=== PATIENT | male | born 1940 | race Caucasian/White ===

== ENCOUNTER 2016-06-08 03:48 | Inpatient (IN) ==
[2016-06-08 04:25] LABS: HEMATOCRIT 23.5 % (42.0-52.0); HEMOGLOBIN 7.7 g/dL (14.0-18.0); LYMPH# 0.22 X1000 (1.2-3.4); LYMPH% 18.5 % (20.5-51.1); MANUAL DIFF NEEDED? NO; MCH 35.3 PG (27-31); MCHC 32.8 g/dL (33-37); MCV 107.8 FL (81-99); MONO% 8.4 % (1.7-9.3); MPV 12.5 FL (7.4-10.4); NEUT% 73.1 % (42.2-75.2); PLT 62 X1000 (130-400); RBC 2.18 XMIL (4.7-6.1)
[2016-06-08 04:31] LABS: INR 1.43; PROTIME 15.4 Seconds (9.2-11.7)
[2016-06-08 04:37] LABS: AGAP 12; ALBUMIN 1.8 g/dL (3.5-5.0); ALKALINE PHOSPHATASE 118 U/L (32-122); BUN 39 mg/dL (8-22); CALCIUM 7.2 mg/dL (8.8-10.2); CHLORIDE 105 mmol/L (98-107); CK PROFILE 49 U/L (24-204); COSMO 285; GOT 19 U/L (10-34); GPT 21 U/L (10-44); MAGNESIUM 1.9 mg/dL (1.5-2.7); POTASSIUM 4.3 mmol/L (3.5-5.1); SODIUM 138 mmol/L (136-145); TCO2 21 mmol/L (25-35); TOTAL BILIRUBIN 0.53 mg/dL (0.20-1.00); TOTAL PROTEIN 4.6 g/dL (6.3-8.3)
--- NOTE | 2016-06-08 04:40 | PROVIDER DOCUMENTATION ---
HPI-Head Injury - General Chief Complaint: Fall Stated Complaint: fall Time Seen by Provider: 06/08/16 04:11 Source: EMS Unable to obtain history due to:: urgency Allergies/Adverse Reactions: Patient Allergies Allergy/AdvReac Type Severity Reaction Status Date / Time adhesive tape Allergy Severe HIVES Verified 06/08/16 04:17 Penicillins Allergy RASH Verified 06/08/16 04:17 Home Medications: Home Medication List Medication Instructions Recorded Confirmed Last Taken Type Diphenoxylate/Atropine [Lomotil] 2.5 mg PO TID PRN 06/08/16 06/08/16 06/07/16 History Doxycycline Hyclate 1 cap PO DAILY 06/08/16 06/08/16 06/07/16 History Hydrocodone/Acetaminophen 1 tab PO Q6H 06/08/16 06/08/16 06/07/16 History [Hydrocodon-Acetaminophn 10-325] Methylphenidate HCl [Ritalin] 1 tab PO BID 06/08/16 06/08/16 06/07/16 History Ondansetron [Ondansetron Odt] 1 tab PO Q6H PRN 06/08/16 06/08/16 06/07/16 History - History of Present Illness-Head Injury Nature of Presenting Problem: PATIENT IS A 75 Y/O MALE WITH SEVERE DEMENTIA, WHO PRESENTS TO THE ED AFTER FALLING FACE FORWARD AFTER SLIPPING ON THE FLOOR AT THE ASSISTED. HE IS BLEEDING FROM THE LOWER LIP AND BOTH NOSTRILS. HE HAS MULTIPLE SKIN TEARS ON HIS ARMS. HE DENIES ANY OTHER COMPLAINTS. HE DENIES ANY CHEST PAIN OR DYSPNEA. Head Injury Location: reports: frontal Other injuries associated with incident:: reports: [place] Quality of Pain: reports: none Severity: reports: mild Onset/Duration: reports: unsure Timing: reports: still present Method of Injury: reports: fell Any recent trauma/injury?: reports: none Injury Associated Symptoms: reports: joint pain Locality of Occurance: Other (ASSISTED) Similar Symptoms Previously?: No Recently seen or treated by another doctor?: No Review of Systems - Adult - REVIEW OF SYSTEMS - ADULT Constitutional: reports: no symptoms reported Eyes: reports: no symptoms reported Ears, Nose, Mouth & Throat: reports: see HPI Cardiovascular: reports: see HPI Respiratory: reports: no symptoms reported Gastrointestinal: reports: no symptoms reported, see HPI, abdominal pain Genitourinary: reports: no symptoms reported, see HPI Musculoskeletal: reports: no symptoms reported, see HPI Integumentary: reports: no symptoms reported, see HPI Neurological: reports: no symptoms reported, see HPI Psychiatric: reports: no symptoms reported, see HPI Endocrine: reports: no symptoms reported, see HPI Hematologic/Lymphatic: reports: no symptoms reported Allergic/Immunologic: reports: no symptoms reported All Other Systems: Reviewed and Negative Past History - Adult - PAST MEDICAL HISTORY-ADULT Review of Records: reports: Old Records Reviewed, Nursing Assessment Review, Medications Reviewed, Social history reviewed & non-contributory. Major Childhood Illnesses: reports: denies history Cardiovascular: reports: CAD, hyperlipidemia, VT (x 3 silent) Respiratory: reports: denies history Gastrointestinal: reports: cancer (colon (currently being treated)), GERD Obstetrical/Gynecological: reports: denies history Genitourinary: reports: denies history Musculoskeletal: reports: denies history Neurological: reports: denies history Endocrine/Immune: reports: denies history Other Conditions: reports: denies history - PRIOR SURGERIES/PROCEDURES Surgical/Procedure History: reports: cardiac stent (angioplasty no stent), orthopedic (extremity) (bilat knee), other (lung biopsy) - IMMUNIZATION STATUS Childhood Immunizations: See Nurse Assessment Flu Vaccine: See Nurse Assessment - FAMILY HISTORY Family History: reviewed, not pertinent Physical Exam- Neurological - Physical Exam-Neuro Initial Vital Signs Reviewed: Yes General Appearance: appears well, alert HENMT: maxillary tenderness, other (LEFT MAXILLARY TENDERNESS. DRIED BLOOD PER NARES. 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 HARVEY (ENT), WHO HAS RECOMMENDED F/U WITH MAXILLOFACIAL SURGERY Attestation - Physician/ SAMUEL Attestation Patient care was provided by Advanced Practice Provider:: Yes Advanced Practice Provider documentation review:: The Mid-level provider documentation, treatment plan and medical decision making was reviewed by the physician who agrees with all treatment and medical decision making by the MLP. The physician spent face to face time with patient:: Yes Advanced Practice Provider documentation review:: The physician spent face to face time with this patient and agrees with all MLP documentation, treatment, and medical decision making by the MLP. See provider notes for further information. Physician Attestation - Physician Attestation I, the provider, attest to the following statement:: Narinder Chavez Physician documentation Attestation:: This documentation recorded by the scribe accurately reflects the service I personally performed and the decisions made by me.
[2016-06-08 04:42] LABS: PTT 44.7 Seconds (22.0-36.0)
[2016-06-08] MEDS ORDERED: LEVAQUIN 750 MG/D5W 150 ML IV ONE (04:48)
[2016-06-08] MEDS ORDERED: NS 1,000 ML IV ONE ×3 (04:48→16:31)
[2016-06-08] MEDS ORDERED: VANCOMYCIN 1 GM/NS 250 ML IV ONE ×2 (04:50→12:30)
--- NOTE | 2016-06-08 04:56 | PROVIDER DOCUMENTATION ---
HPI-Fever - General Chief Complaint: Fall Stated Complaint: fall Time Seen by Provider: 06/08/16 04:11 Source: EMS Unable to obtain history due to:: urgency Allergies/Adverse Reactions: Patient Allergies Allergy/AdvReac Type Severity Reaction Status Date / Time adhesive tape Allergy Severe HIVES Verified 06/08/16 04:17 Penicillins Allergy RASH Verified 06/08/16 04:17 Home Medications: Home Medication List Medication Instructions Recorded Confirmed Last Taken Type Diphenoxylate/Atropine [Lomotil] 2.5 mg PO TID PRN 06/08/16 06/08/16 06/07/16 History Doxycycline Hyclate 1 cap PO DAILY 06/08/16 06/08/16 06/07/16 History Hydrocodone/Acetaminophen 1 tab PO Q6H 06/08/16 06/08/16 06/07/16 History [Hydrocodon-Acetaminophn 10-325] Methylphenidate HCl [Ritalin] 1 tab PO BID 06/08/16 06/08/16 06/07/16 History Ondansetron [Ondansetron Odt] 1 tab PO Q6H PRN 06/08/16 06/08/16 06/07/16 History - History of Present Illness-Fever Nature of Presenting Problem: 75 YEAR OLD MALE WHO SLIPPED OUT OF WHEELCHAIR. FAMILY STATES THAT HE HAS BEEN VERY WEAK. HISTORY OF COLON CANCER, S/P CHEMOTHERAPY Fever Severity/Quality: reports: subjective Onset/Duration: reports: 3 days ago Timing: reports: still present Severity: reports: moderate Context: reports: cancer-chemotherapy Fever Therapy OUTSIDE SALES ENGINEER: Initiated prescription medications Cognitive Baseline: alert, oriented x3 Modifying Factors: improves with: nothing Associated Symptoms: reports: fatigue Similar Symptoms Previously?: No Recently seen or treated by another doctor?: No Review of Systems - Adult - REVIEW OF SYSTEMS - ADULT Constitutional: reports: see HPI Eyes: reports: no symptoms reported Ears, Nose, Mouth & Throat: reports: no symptoms reported Cardiovascular: reports: no symptoms reported Respiratory: reports: no symptoms reported Gastrointestinal: reports: see HPI Genitourinary: reports: no symptoms reported Musculoskeletal: reports: joint pain, joint swelling, muscle aches Integumentary: reports: nail changes, skin thickening Neurological: reports: no symptoms reported Psychiatric: reports: no symptoms reported Endocrine: reports: no symptoms reported, see HPI, change in skin pigment Hematologic/Lymphatic: reports: no symptoms reported, see HPI, blood clots Allergic/Immunologic: reports: no symptoms reported, see HPI, allergic reactions Past History - Adult - PAST MEDICAL HISTORY-ADULT Review of Records: reports: Old Records Reviewed, Nursing Assessment Review, Medications Reviewed, Social history reviewed & non-contributory. Major Childhood Illnesses: reports: denies history Cardiovascular: reports: CAD, hyperlipidemia, NV (x 3 silent) Respiratory: reports: denies history Gastrointestinal: reports: cancer (colon (currently being treated)), GERD Obstetrical/Gynecological: reports: denies history Genitourinary: reports: denies history Musculoskeletal: reports: denies history Neurological: reports: denies history Endocrine/Immune: reports: denies history Other Conditions: reports: denies history - PRIOR SURGERIES/PROCEDURES Surgical/Procedure History: reports: cardiac stent (angioplasty no stent), orthopedic (extremity) (bilat knee), other (lung biopsy) - IMMUNIZATION STATUS Childhood Immunizations: See Nurse Assessment Flu Vaccine: See Nurse Assessment - FAMILY HISTORY Family History: reviewed, not pertinent Physical Exam-General - PHYSICAL EXAM-ADULT Initial Vital Signs Reviewed: Yes - CONSTITUTIONAL General Appearance: mild distress - EYES Eyes: PERRL/EOMI, pink conjunctivae, fundi clear, no AV nicking - HEAD, EARS, NOSE, MOUTH & THROAT HENMT: normocephalic/atraumatic, moist mucous membranes, normal ENT inspection - NECK Neck: non-tender, full range of motion, supple - RESPIRATORY Respiratory: chest non-tender, lungs clear, normal breath sounds - CARDIOVASCULAR Cardiovascular: normal peripheral pulses, regular rate, rhythm, no edema - CHEST (BREASTS) Chest/Breast: deferred - GASTROINTESTINAL (ABDOMEN) Abdominal Exam: normal bowel sounds (PURULENT MATERIAL DRAINING FROM COLOSTOMY) - GENITOURINARY Male Genitalia: deferred Rectal Exam: deferred Hemoccult Exam: deferred - LYMPHATIC Lymphatic: no adenopathy, axilla node tender - MUSCULOSKELETAL Back Exam: normal inspection, no CVA tenderness, no vertebral tenderness Extremity: normal range of motion Departure - Departure Time of Disposition Order: 06:01 DIAGNOSIS: Thrombocytopenia, Colon cancer, Pancytopenia due to antineoplastic chemotherapy DIAGNOSIS: (Ruled Out): LeFort I fracture of maxilla Disposition: ADMITTED INPATIENT 09 Certified Medical Emergency: Emergent Condition: Stable Additional Instructions: CASE DISCUSSED WITH DR. HARVEY (ENT), WHO HAS RECOMMENDED F/U WITH MAXILLOFACIAL SURGERY Referrals: Oli Martin MD [Primary Care Provider] - Attestation - Physician/ SAMUEL Attestation Patient care was provided by Advanced Practice Provider:: Yes Advanced Practice Provider documentation review:: The Mid-level provider documentation, treatment plan and medical decision making was reviewed by the physician who agrees with all treatment and medical decision making by the MLP. The physician spent face to face time with patient:: Yes Advanced Practice Provider documentation review:: The physician spent face to face time with this patient and agrees with all MLP documentation, treatment, and medical decision making by the MLP. See provider notes for further information. Physician Attestation - Physician Attestation I, the provider, attest to the following statement:: Narinder Chavez Physician documentation Attestation:: This documentation recorded by the scribe accurately reflects the service I personally performed and the decisions made by me.
[2016-06-08] MEDS ORDERED: NS 500 ML IV SCH (05:00)
[2016-06-08 05:30] LABS: URINE CULTURE NEEDED? NO; URINE MICRO REVIEW NEEDED? NO; URINE SOURCE CATH
[2016-06-08] MEDS ORDERED: DOPAMINE 400 MG/D5W 500 ML IV SCH (05:30)
[2016-06-08 05:33] LABS: BILIRUBIN URINE NEGATIVE (NEGATIVE); BLOOD URINE NEGATIVE (NEGATIVE); COLOR YELLOW; GLUCOSE URINE NEGATIVE (NEGATIVE); LEUKOCYTES URINE NEGATIVE (NEGATIVE); NITRITE URINE NEGATIVE (NEGATIVE); PH URINE 5.5; PROTEIN URINE TRACE mg/dL (NEGATIVE); SP GRAVITY URINE 1.024; TURBIDITY URINE CLEAR (CLEAR); UROBILINOGEN URINE NORMAL (NORMAL)
[2016-06-08 05:34] LABS: UR EPITHELIAL CELLS <10 /HPF (<10); URINE BACTERIA NEGATIVE /HPF; URINE RBC <10 /HPF (<10); URINE WBC <10 /HPF (<10)
--- NOTE | 2016-06-08 07:36 | Diag Imaging Result Document ---
PROCEDURE NAME: CHEST-1 VIEW - 06/08/2016 PORTABLE CHEST X-RAY: COMPARISON: 04/20/2016. FINDINGS: Lung volumes are much lower with some central bronchovascular crowding. No obvious infiltrates. Heart size is normal. Stable right chest port and surgical sutures in the right lung. IMPRESSION: Much lower lung volumes.
[2016-06-08] MEDS ORDERED: NS 1,000 ML ONE (07:49)
[2016-06-08] MEDS: NORCO-7.5 PO PRN ×2 (10:53→20:45)
[2016-06-08] MEDS ORDERED: D5 1/2 NS + KCL 10 MEQ 1,000 ML IV SCH (11:00)
[2016-06-08] MEDS ORDERED: VANCOMYCIN IV PER PHARMACY MISC SCH (11:00)
[2016-06-08] MEDS ORDERED: ZOFRAN ODT PO PRN (11:02)
[2016-06-08] MEDS ORDERED: POTASSIUM CHLORIDE 10 MEQ in D5 NS 1,000 ML IV SCH (12:00)
--- NOTE | 2016-06-08 13:00 | HISTORY AND PHYSICAL ---
HISTORY OF PRESENT ILLNESS: Mr. Encinas, who is a 75-year-old fragile man. He has a known case of carcinoma of the colon. He had two surgeries done twice for part of the cancer by Dr. Moody. After the last surgery he had some peritoneal fluid drain is placed in by the radiologist under the order of Dr. Laureano. He has been under the care of Dr. Laureano, and recently received chemotherapy. He also has a known case of COPD, has been feeling very weak and was found to be dehydrated in the emergency room and he was admitted to the hospital here where he was found to have marked pancytopenia and he is admitted. PAST MEDICAL HISTORY: He has had a past history of myocardial infarction. However, he has been keeping blood pressure very low and not feeling well as well. MEDICATIONS: 1. Methylphenidate 10 mg b.i.d. 2. Zofran. 3. Lomotil for diarrhea. 4. He has had chemotherapy recently with Dr. Laureano. OTHER DETAILS OF PERSONAL, PAST AND FAMILY HISTORY: Noncontributory. ALLERGIC: Adhesive tape and penicillin. SOCIAL HISTORY: He used to be a smoker in the past. REVIEW OF SYSTEMS: General: He is very weak. He has some severe nausea, abdominal pain. Other than that, it is noncontributory. PHYSICAL EXAMINATION: VITAL SIGNS: Reveal temperature 98.1 degrees Fahrenheit, pulse 87 per minute, respiratory rate 14 per minute. Blood pressure 82/41. HEENT: Head normocephalic. Pupils PERRLA. Fundus examination normal. Supple. JVP normal. ENT examination unremarkable. There is no tenderness over the maxillary sinuses. There is no nosebleed. NECK: There is no evidence of lymphadenopathy, thyroid enlargement. There is gross anemia with pallor of skin and mucous membrane. Bilateral pedal edema present. PMI in the normal position. HEART: Sounds normal. No murmur, gallop or rub noted. ABDOMEN: Nondistended. Hernial orifices normal. No guarding, rigidity, free fluid, masses, or organomegaly. Bowel sounds normal. RECTAL: Deferred. PHLEBOTOMY TECHNOLOGIST: Higher functions normal. Cranial nerves normal. Motor and sensory system examination grossly unremarkable. There is generalized muscle wasting. Deep tendon reflexes normal. Plantars downgoing. Skull and spine examination normal for age. No cerebellar signs or signs of meningeal irritation. LOCOMOTOR EXAM: Unremarkable. SKIN EXAM: Unremarkable. IMPRESSION: 1. Generalized weakness. 2. Hypotension. 3. Anemia. 4. Pancytopenia. 5. Dehydration. Patient appears very weak. We will start some IV fluids and we will also start some Clinimix. cc: MD Oli Velázquez MD
[2016-06-08] MEDS: CLINIMIX E 4.25%-5% SOLUTION 1,000 ML IV SCH (13:50)
[2016-06-08] MEDS: GRANIX SUBQ SCH (13:50)
[2016-06-08] MEDS: LOMOTIL PO PRN (13:51)
[2016-06-08] MEDS: ZOFRAN IV PRN (13:51)
[2016-06-08] MEDS: DILAUDID IV PRN (13:51)
[2016-06-08] MEDS: DUONEB (A & A) INH SCH ×2 (15:54→20:04)
[2016-06-08] MEDS ORDERED: NS 2,000 ML ONE (16:21)
[2016-06-08] MEDS ORDERED: NS 500 ML IV ONE (16:55)
[2016-06-08] MEDS: RITALIN PO SCH (20:44)
[2016-06-08] MEDS: NS 1,000 ML IV SCH (22:13)
[2016-06-09] MEDS ORDERED: NEO-SYNEPHRINE 50 MG in NS 250 ML IV SCH (00:30)
[2016-06-09] MEDS: DUONEB (A & A) INH SCH ×4 (02:30→22:59)
[2016-06-09] MEDS: DILAUDID IV PRN ×3 (03:30→21:22)
[2016-06-09] MEDS: LEVAQUIN 750 MG/D5W 150 ML IV SCH (05:10)
[2016-06-09] MEDS: LOMOTIL PO PRN (08:30)
[2016-06-09] MEDS: GRANIX SUBQ SCH (08:30)
[2016-06-09] MEDS: RITALIN PO SCH ×2 (08:30→21:21)
[2016-06-09] MEDS: CALCIUM GLUCONATE 2 GM in NS 100 ML IV SCH ×2 (12:30→19:40)
[2016-06-09] MEDS: NS 1,000 ML IV SCH (13:30)
--- NOTE | 2016-06-09 14:18 | PROGRESS NOTE ---
DATE: 06/09/2016 SUBJECTIVE: He is a 75-year-old white gentleman who was admitted to the hospital on 06/08/2016. He has colon cancer under the care of Dr. Laureano, going for chemotherapy. He was admitted to the floor on 06/08/2000 with retroperitoneal abscess associated with fever and hypotension. The patient was admitted by Dr. Potts, and the patient was on IV antibiotics and IV fluids. I was notified yesterday by the nurses he was anemic and blood pressure was running low. He was transferred to the ICU. Most of the history was reviewed from the H and P. PAST MEDICAL HISTORY: History of colon cancer and history of CAD. REVIEW OF SYSTEMS: HEENT: No headache. No vision problem. Neck: No goiter. No lymphadenopathy. Cardiopulmonary: No chest pain, shortness of breath, PND, orthopnea. Gastrointestinal: Upper abdominal pain, mostly on the right side. Genitourinary: He had a Clements placed. Extremities: Swelling of feet. Neurologic: Dizziness, fatigue, and weakness. MEDICATIONS: Patient is on IV fluids with D5 half-normal saline at 60 an hour, Clinimix 40 mL/h, IV vancomycin and Levaquin. PHYSICAL EXAMINATION: He is afebrile. Blood pressure was 70/60. Not tachycardic. Respirations 20. He is saturating 100% on room air.General Appearance: Elderly gentleman, cachectic, malnourished, not in respiratory distress. HEENT: Temporal wasting and sunken eyeballs. and dry Neck: JVP is normal. Supple. Chest: Bilateral air entry. Heart: Sounds are regular. He has a Port-A-Cath present on the right side. Abdomen: Soft, scaphoid. No signs of peritonitis. Midline abdominal scar present. He has a drain placed on the right side, draining about 50 mL of serosanguineous fluid that appears to be like a pus. Genitourinary: Clements catheter was placed. Extremities: Pedal edema 1+. Neurological: No obvious deficits. INVESTIGATIONS: Last night, white cell count 1.1, hematocrit 23, platelets 62, 000. INR 1.43. SMA 7: Sodium 148, potassium 4.3, chloride 105, CO2 of 21, BUN 39, creatinine 1.1, glucose 106, calcium 7.2, magnesium 1.8. Blood cultures are pending. Urinalysis is negative. Chest x-ray is improved. ASSESSMENT AND PLAN: 1. Hypotension. Could be sepsis, could be intra volume depletion. Plan is normal saline bolus and transfer to the ICU. I if the blood pressure does not come up after fluid balances, consider vasopressors with Levophed. Discontinue D5 half-normal saline and change to crystalloids. 2. Pancytopenia due to recent chemotherapy by Dr. Laureano. Hematological support. Hematocrit was 23. Transfuse 2 units of packed RBCs and follow up on CBC. 3. Neutropenic. Continue contact precautions. Also giving Neupogen, as per Dr. Laureano. 4. Blood cultures are positive for Gram-positive cocci from the port. We will follow up on the culture and sensitivity. 5. History of diarrhea. Stool studies are pending. Lomotil as needed. 6. Status post a retroperitoneal abscess and drainage. Drainage is minimal right now. 7. Advance directives discussed with the eldest son, who lives close by, and they made him a living will, DNR. 8. Ancillary support, nutrition. Increasing the Clinimix to 60 mL/h. 9. Follow up on the pending laboratories. Discussed with the son in the ICU, who agreed with present plan. Documentation time is 35 minutes. cc: MD Oli Rosado MD MTDD
[2016-06-09] MEDS ORDERED: LEVOPHED 8 MG in D5 1/2 NS 250 ML IV SCH (15:00)
[2016-06-09] MEDS: CLINIMIX E 4.25%-5% SOLUTION 1,000 ML IV SCH (15:30)
[2016-06-09] MEDS: VANCOMYCIN 1,400 MG in NS 250 ML IV SCH (17:30)
[2016-06-09 21:00] LABS: BANDS 2 % (0-1); EOS 2 % (1-10); EOS# 0.02 X1000 (0.0-0.7); EOS% 1.6 % (0.0-10.0); HEMATOCRIT 31.1 % (42.0-52.0); HEMOGLOBIN 10.4 g/dL (14.0-18.0); IMM GRAN# 0.33 X1000 (0.0-0.04); LYMPH# 0.25 X1000 (1.2-3.4); LYMPH% 19.7 % (20.5-51.1); LYMPHS 28 % (21-51); MANUAL DIFF NEEDED? YES; MCH 32.6 PG (27-31); MCHC 33.4 g/dL (33-37); MCV 97.5 FL (81-99); MONO 12 % (1-9); MONO# 0.11 X1000 (0.11-0.59); MONO% 8.7 % (1.7-9.3); MPV 11.7 FL (7.4-10.4); PLT 61 X1000 (130-400); RBC 3.19 XMIL (4.7-6.1)
[2016-06-10 00:30] LABS: CHLORIDE 105 mmol/L (98-107); POTASSIUM 3.4 mmol/L (3.5-5.1); SODIUM 136 mmol/L (136-145)
[2016-06-10 00:31] LABS: AGAP 12; BUN 25 mg/dL (8-22); COSMO 280; TCO2 19 mmol/L (25-35)
[2016-06-10 00:32] LABS: ALBUMIN 1.7 g/dL (3.5-5.0); CALCIUM 6.4 mg/dL (8.8-10.2); TOTAL BILIRUBIN 0.58 mg/dL (0.20-1.00); TOTAL PROTEIN 4.4 g/dL (6.3-8.3)
[2016-06-10 00:33] LABS: ALKALINE PHOSPHATASE 111 U/L (32-122); GOT 25 U/L (10-34); GPT 25 U/L (10-44)
[2016-06-10] MEDS: NS 1,000 ML IV SCH ×3 (01:02→15:39)
[2016-06-10] MEDS: DILAUDID IV PRN ×6 (02:23→23:31)
[2016-06-10] MEDS: LOMOTIL PO PRN (02:23)
[2016-06-10] MEDS: DUONEB (A & A) INH SCH ×4 (03:26→19:39)
[2016-06-10] MEDS: LEVAQUIN 750 MG/D5W 150 ML IV SCH (05:13)
[2016-06-10 05:50] LABS: EOS# 0.02 X1000 (0.0-0.7); HEMATOCRIT 32.4 % (42.0-52.0); HEMOGLOBIN 10.5 g/dL (14.0-18.0); LYMPH# 0.18 X1000 (1.2-3.4); LYMPH% 17.8 % (20.5-51.1); MANUAL DIFF NEEDED? YES; MCH 31.9 PG (27-31); MCHC 32.4 g/dL (33-37); MCV 98.5 FL (81-99); MONO# 0.11 X1000 (0.11-0.59); MONO% 10.9 % (1.7-9.3); NEUT% 69.3 % (42.2-75.2); PLT 47 X1000 (130-400); RBC 3.29 XMIL (4.7-6.1)
[2016-06-10 06:01] LABS: AGAP 8; ALBUMIN 1.6 g/dL (3.5-5.0); ALKALINE PHOSPHATASE 104 U/L (32-122); BUN 22 mg/dL (8-22); CALCIUM 7.2 mg/dL (8.8-10.2); CHLORIDE 108 mmol/L (98-107); COSMO 276; GOT 17 U/L (10-34); GPT 21 U/L (10-44); POTASSIUM 3.8 mmol/L (3.5-5.1); SODIUM 136 mmol/L (136-145); TCO2 20 mmol/L (25-35); TOTAL BILIRUBIN 0.56 mg/dL (0.20-1.00); TOTAL PROTEIN 4.3 g/dL (6.3-8.3)
[2016-06-10 06:03] LABS: LYMPHS 20 % (21-51); MONO 10 % (1-9)
[2016-06-10] MEDS: GRANIX SUBQ SCH (09:07)
[2016-06-10] MEDS: CLINIMIX E 4.25%-5% SOLUTION 1,000 ML IV SCH (09:57)
--- NOTE | 2016-06-10 11:20 | PROGRESS NOTE ---
DATE: 06/10/2016 INTERVAL HISTORY: For the last 24 hours, followup calcium results of 6.4. Patient was given 4 g of calcium gluconate. The patient is not doing very well. Blood pressure is very labile, still requiring vasopressors with Levophed. He is also requiring more oxygen. His appetite is poor. He is on a full liquid diet. He is not eating very well. His son was in the room at the bedside. Patient wants to go home and . PHYSICAL EXAMINATION: Vital Signs: Temperature is 98 degrees, tachycardic, blood pressure is 97/77, on 2 L oxygen and now on 40% Ventimask, 93%. HEENT Examination: He is in mild discomfort and increased work of breathing on 40% Ventimask. General: Emaciated, dry. Chest: Clear to auscultation with very poor air entry. Heart: Sounds are tachycardic. Abdomen: Belly is soft and drainage tube on the right side showing minimal pus in the bag. Genitalia: Clements catheter was seen. Extremities: There was 2+ pedal edema noted. Neurological Examination: No obvious deficits. INVESTIGATIONS: White cell count 1, hematocrit 32, platelets 47,000. SMA 7: Sodium 136, potassium 3.8, chloride 108, BUN 22, creatinine 0.6, glucose 108, calcium 7.2. LFTs were normal. Albumin is 1.6. Microbiology culture: Blood cultures were negative but Staphylococcus epidermitis noted from the port, sensitive to oxacillin. Clostridium difficile toxin is negative. ASSESSMENT AND PLAN: 1. Hypotension. Looked like fairly sepsis syndrome. Continue on Levaquin and vancomycin. 2. Methicillin sensitive Staphylococcus epidermatitis, mostly contaminant from Port-A-Cath, stable. 3. Hypocalcemia, improving after the calcium gluconate. Continue 1 g of calcium gluconate. 4. Hypertension. Continue on intravenous fluids 80 mL per hour and Levophed as needed. 5. Pancytopenia due to chemotherapy. Hematological support with Granix 480 mcg subcutaneous daily and also status post 2 units of packed red blood cells. 6. Increased work of breathing. Get a chest x-ray and repeat the labs in the morning. 7. Living will, [id number]. Discussed the plan with the son. Dr. Martin is going to follow up. cc: MD Oli Rosado MD
[2016-06-10] MEDS ORDERED: CALCIUM GLUCONATE 1 GM in NS 50 ML IV ONE (12:00)
--- NOTE | 2016-06-10 12:40 | Diag Imaging Result Document ---
PROCEDURE NAME: CHEST-PORTABLE - 06/10/2016 PORTABLE CHEST: Compared with 06/08/2016. FINDINGS: There has been development of infiltrate on the left which is most dense at the mid and upper lung, suspicious for pneumonia. There has been development of less extensive infiltrate at the right mid to upper lung. There is no substantial pleural effusion or pneumothorax identified. Heart size appears within normal limits. Central venous catheter remains. IMPRESSION: Development of bilateral infiltrates, most extensive on the left, suspicious for pneumonia.
[2016-06-10] MEDS: RITALIN PO SCH ×2 (12:49→20:01)
[2016-06-10] MEDS: VANCOMYCIN 1,400 MG in NS 250 ML IV SCH (16:23)
[2016-06-10] MEDS: ZOFRAN IV PRN (17:12)
[2016-06-11] MEDS: DUONEB (A & A) INH SCH ×4 (02:42→19:34)
[2016-06-11] MEDS: NS 1,000 ML IV SCH ×2 (03:57→12:34)
[2016-06-11] MEDS: CLINIMIX E 4.25%-5% SOLUTION 1,000 ML IV SCH ×2 (03:57→21:01)
[2016-06-11 04:35] LABS: ALLEN TEST YES; BE -6.1 mmoll (-3.0-3.0); BLOOD TYPE ARTERIAL; DRAW SITE R RADIAL; PCO2(98.6) 35 mmHg (35-45); SAMPLE BLOOD; pH(98.6) 7.34 (7.35-7.45)
[2016-06-11 04:36] LABS: MODALITY VENTIMASK; PO2(98.6) 48 mmHg (60-100)
[2016-06-11 04:51] LABS: EOS# 0.01 X1000 (0.0-0.7); EOS% 0.9 % (0.0-10.0); HEMATOCRIT 28.6 % (42.0-52.0); HEMOGLOBIN 9.3 g/dL (14.0-18.0); LYMPH# 0.17 X1000 (1.2-3.4); LYMPH% 15.2 % (20.5-51.1); MANUAL DIFF NEEDED? YES; MCH 32.3 PG (27-31); MCHC 32.5 g/dL (33-37); MCV 99.3 FL (81-99); MONO# 0.12 X1000 (0.11-0.59); MONO% 10.7 % (1.7-9.3); NEUT% 73.2 % (42.2-75.2); RBC 2.88 XMIL (4.7-6.1)
[2016-06-11 04:52] LABS: PLT 31 X1000 (130-400)
[2016-06-11 04:59] LABS: LYMPHS 14 % (21-51); MONO 12 % (1-9)
[2016-06-11 05:13] LABS: AGAP 9; BUN 23 mg/dL (8-22); CHLORIDE 108 mmol/L (98-107); COSMO 275; POTASSIUM 3.5 mmol/L (3.5-5.1); SODIUM 135 mmol/L (136-145); TCO2 18 mmol/L (25-35)
[2016-06-11] MEDS: DILAUDID IV PRN ×4 (05:38→21:25)
[2016-06-11] MEDS: LEVAQUIN 750 MG/D5W 150 ML IV SCH (05:39)
[2016-06-11] MEDS ORDERED: GENTAMICIN IV PER PHARMACY MISC SCH (07:15)
--- NOTE | 2016-06-11 07:50 | Diag Imaging Result Document ---
PROCEDURE NAME: CHEST-PORTABLE - 06/11/2016 AP PORTABLE CHEST ERECT AT 0510 HOURS: FINDINGS: There are coarse opacities throughout the upper lobes bilaterally which were not apparent on 03/21/2016. They were not present on 06/08/2016. There has been slight worsening with regard to the right upper lobe since 06/10/2016. IMPRESSION: Pneumonia.
--- NOTE | 2016-06-11 07:53 | PROGRESS NOTE ---
DATE: 06/11/2016 SUBJECTIVE: The patient is doing fair. The patient does have cough, chest congestion, shortness of breath, oxygen requirement is going high. Patient is on 100% Venti mask. Blood gas results reviewed. No chest pain. The patient does feel weak. Admitted with weakness, intra-abdominal abscess and sepsis. The patient had near syncopal episode at home. Admission history and physical noted. OBJECTIVE: His vital signs reviewed. Neck is supple. No JVD. Lungs: Inspiratory crepitation in both lung rodríguez. CVS: S1 and S2 heard. Abdomen is soft, globular. Bowel sounds present. Patient does have a drainage tube coming out of abdomen draining purulent material. Extremities with no cyanosis or clubbing. Bilateral leg swelling. FLUID DYNAMICIST: Alert, awake and answering questions fairly well. CONSIDERATION: Patient is neutropenic and has infection. Patient is on vancomycin. I am going to add gentamicin. Considering low blood pressure and recent use of steroid, I am going to put him back on Solu-Medrol. His problems includes intra-abdominal abscess, pneumonia, hypoxemia, respiratory failure, history of colon cancer and COPD. Overall prognosis fair to guarded. Family is aware of the prognosis. Patient also had lab data done today. It did reveal leukopenia, thrombocytopenia and anemia. The clean room technician/oncologist following patient with us. Blood gas results reviewed. cc: Oli Martin MD
[2016-06-11] MEDS: RITALIN PO SCH ×2 (08:20→20:40)
[2016-06-11] MEDS: SOLU-MEDROL IV SCH ×2 (08:22→15:47)
[2016-06-11] MEDS: LOMOTIL PO PRN (08:22)
[2016-06-11] MEDS: GRANIX SUBQ SCH (09:40)
[2016-06-11] MEDS: GENTAMICIN IV SCH (11:30)
[2016-06-11] MEDS: NS IV SCH (11:30)
[2016-06-11] MEDS ORDERED: LASIX ONE (13:12)
[2016-06-11] MEDS: VANCOMYCIN 1,400 MG in NS 250 ML IV SCH (17:56)
--- NOTE | 2016-06-11 19:16 | CONSULTATION ---
DATE OF CONSULTATION: 06/11/2016 ADMITTING PHYSICIAN: Juan Diego Potts M.D. REQUESTING PHYSICIAN: Juan Diego Potts M.D. We appreciate this consultation. CHIEF COMPLAINT: Primary colon cancer. HISTORY OF PRESENT ILLNESS: Mr. Encinas is a 75-year-old male well known to us with a history of primary colon carcinoma presently on Erbitux and CPT-11. The patient has had [address] Moody, the last of which included peritoneal drain placement for an abscess. The patient presented to [facility] Emergency Department secondary to profound weakness and dehydration. Upon presentation the patient was found to have marked pancytopenia. The patient does have a white blood cell count of 1.19 with a platelet count of 62,000, hemoglobin of 7.7, and ANC of 870. The patient is currently lying supine in bed, slightly dyspneic, but otherwise in no immediate distress. PAST MEDICAL HISTORY: 1. Myocardial infarction. 2. Hypertension. 3. Metastatic colon cancer. PAST SURGICAL HISTORY: 1. Colon resection. 2. Drain placement for colon abscess. FAMILY HISTORY: Negative for any hematologic or oncologic problems. SOCIAL HISTORY: The patient has a history of smoking cigarettes. He has since quit. He does not use alcohol or illicit drugs. MEDICATIONS ON ADMISSION: 1. Methylphenidate. 2. Zofran 3. Lomotil. ALLERGIES: Adhesive tape and penicillin. REVIEW OF SYSTEMS: A 14 point review of systems was obtained and is negative except as mentioned in HPI. PHYSICAL EXAMINATION: General: Mr. Encinas is a pleasant, 75-year-old male, lying supine in bed, apparently weak but in no immediate distress. Vital Signs: Temperature 98.2 degrees, blood pressure 82/41, heart rate 87, respirations 14, O2 saturation 97% on nasal cannula O2. HEENT: Normocephalic, atraumatic. Mucous membranes are pale and dry. Sclerae is anicteric. Extraocular movements intact. Neck: Supple. Lungs: Coarse breath sounds in the bases. Cardiovascular: S1- S2 is heard without murmur, rub or gallop. Abdomen: Soft, slightly distended, tender at the surgical site. No rebound or guarding is noted. Extremities: Without clubbing or cyanosis. He does have 2+ bilateral lower extremity edema. Dermatologic: No rashes, bruises or lesions. Neurologic: The patient is awake, alert, and oriented x3. He has no focal motor deficit. LABORATORY DATA: Hemoglobin 7.7, hematocrit 23.5, white blood cell count is 1.19, platelets 62,000, ANC 870, INR 1.43, sodium 138, potassium 4.3, chloride 105, CO2 is 21, BUN 39, creatinine 1.1, glucose 106, calcium 7.2, magnesium 1.9. Urinalysis is negative for UTI. Blood cultures are pending from left forearm and port. Chest x-ray reveals much lower lung volumes. ASSESSMENT AND PLAN: 1. Primary colon cancer currently status post cycle 1, day 1, of Erbitux and CPT-11 secondary to progression of disease. We will hold his next dose for now until his acute illness is resolved. 2. Colon abscess status post drainage placement with purulent material currently draining. 3. Sepsis with blood cultures currently pending. 4. Diarrhea. We will check stool studies at this time. If stool studies are negative, we will begin Lomotil. 5. Pancytopenia. We will continue to monitor CBC and replace platelets if platelet count goes below 30. Additionally, we will give the patient packed red blood cells if hemoglobin goes below 8. We will continue to monitor ANC closely. The patient may benefit from Granix if ANC continues to be low. 6. We will follow along with you and make further recommendations pending outcome. Dictated by JANENE Byers for Philip Laureano MD cc: JANENE Byers MD Bharat K. Vakharia, MD
[2016-06-12] MEDS: SOLU-MEDROL IV SCH ×4 (00:06→23:51)
[2016-06-12] MEDS: DILAUDID IV PRN ×5 (00:06→23:53)
[2016-06-12] MEDS: DUONEB (A & A) INH SCH ×4 (03:01→22:45)
[2016-06-12] MEDS: NS 1,000 ML IV SCH (03:31)
[2016-06-12] MEDS: LEVAQUIN 750 MG/D5W 150 ML IV SCH (05:17)
[2016-06-12 06:24] LABS: BASO% 0.2 % (0.0-0.8); HEMATOCRIT 28.4 % (42.0-52.0); HEMOGLOBIN 9.3 g/dL (14.0-18.0); IMM GRAN# 0.05 X1000 (0.0-0.04); IMM GRAN% 0.9 % (0.0-0.5); LYMPH# 0.16 X1000 (1.2-3.4); LYMPH% 2.9 % (20.5-51.1); MANUAL DIFF NEEDED? YES; MCH 32.5 PG (27-31); MCHC 32.7 g/dL (33-37); MCV 99.3 FL (81-99); MONO# 0.28 X1000 (0.11-0.59); MONO% 5.1 % (1.7-9.3); NEUT% 90.9 % (42.2-75.2); PLT 46 X1000 (130-400); RBC 2.86 XMIL (4.7-6.1)
[2016-06-12 06:50] LABS: AGAP 16; BUN 29 mg/dL (8-22); CALCIUM 7.3 mg/dL (8.8-10.2); CHLORIDE 84 mmol/L (98-107); COSMO 254; POTASSIUM 3.3 mmol/L (3.5-5.1); SODIUM 121 mmol/L (136-145); TCO2 21 mmol/L (25-35)
[2016-06-12] MEDS ORDERED: KLOR-CON PO ONE (07:12)
[2016-06-12] MEDS ORDERED: NS + KCL 20 MEQ 1,000 ML IV SCH (07:16)
[2016-06-12 07:25] LABS: BANDS 6 % (0-1); LYMPHS 2 % (21-51); MONO 4 % (1-9)
[2016-06-12 07:26] LABS: HYPOCHROM 1+; LARGE PLATELETS OCCASIONAL
--- NOTE | 2016-06-12 07:52 | Diag Imaging Result Document ---
PROCEDURE NAME: CHEST-PORTABLE - 06/12/2016 SINGLE FRONTAL RADIOGRAPH OF THE CHEST: COMPARISON: 06/11/2016. FINDINGS: Right chest port is in stable position. Infiltrates at the mid and upper lung zones bilaterally are stable to marginally improved. No new consolidations are identified. Cardiac silhouette is stable. IMPRESSION: Stable to marginal improvement in the bilateral infiltrates as described.
[2016-06-12] MEDS: RITALIN PO SCH ×2 (08:18→22:40)
[2016-06-12] MEDS: LOMOTIL PO PRN (08:18)
--- NOTE | 2016-06-12 08:34 | PROGRESS NOTE ---
DATE: 06/12/2016 SUBJECTIVE: Mr. Encinas is doing fair. The patient is short of breath, requiring 100% FiO2 via Ventimask. His O2 saturation is staying around 91-92%. The patient did have a bowel movement. Oral intake is fair. Does have cough and chest congestion. No nausea or vomiting. Denied any diarrhea. At times, confusion. PHYSICAL EXAMINATION: Vital Signs: Vital signs reviewed. Lungs: Bilateral inspiratory crepitations. Occasional wheezing. CVS: S1 and S2 heard. Abdomen: Soft, globular. Bowel sounds present. MARRIAGE AND FAMILY TEACHER: Alert, awake. Able to move all 4 limbs. LAB DATA: Done today did reveal improvement in WBC count to 5.52, hemoglobin 9.3, platelet count 46,000. Patient did have hypokalemia. Sodium 121, BUN 29, creatinine 0.7, potassium was 3.3. Patient is on vancomycin and gentamicin. Pharmacy is adjusting the dose. CONSIDERATION: 1. Neutropenia, thrombocytopenia. 2. Sepsis due to pneumonia. 3. Metastatic colon cancer. 4. Chronic obstructive pulmonary disease. PLAN: Overall prognosis fair to guarded. Family is aware of the prognosis. cc: Oli Martin MD
[2016-06-12] MEDS: GRANIX SUBQ SCH (08:57)
[2016-06-12] MEDS: VANCOMYCIN 1,400 MG in NS 250 ML IV SCH (10:13)
[2016-06-12] MEDS: GENTAMICIN IV SCH (12:01)
[2016-06-12] MEDS: NS IV SCH (12:01)
[2016-06-12] MEDS: CLINIMIX E 4.25%-5% SOLUTION 1,000 ML IV SCH (12:58)
[2016-06-13] MEDS: DUONEB (A & A) INH SCH ×4 (03:20→19:20)
[2016-06-13] MEDS: VANCOMYCIN 1,400 MG in NS 250 ML IV SCH (04:54)
[2016-06-13] MEDS: CLINIMIX E 4.25%-5% SOLUTION 1,000 ML IV SCH ×3 (04:57→20:18)
[2016-06-13] MEDS: LEVAQUIN 750 MG/D5W 150 ML IV SCH (05:36)
[2016-06-13] MEDS: DILAUDID IV PRN ×5 (05:36→23:03)
[2016-06-13] MEDS ORDERED: LASIX IV ONE (06:24)
--- NOTE | 2016-06-13 06:46 | PROGRESS NOTE ---
DATE: 06/13/2016 SUBJECTIVE: Mr. Encinas is doing some better. Shortness of breath improving slowly. No high- grade fever or chills. Mild cough. Oral intake is fair. The patient is getting Clinimix. No diarrhea. PHYSICAL EXAMINATION: Vital Signs: Vital signs noted. Neck: Supple. No JVD. Lungs: Bibasilar crepitations, occasional wheezing. CVS: S1 and S2 heard. Abdomen: Soft, globular. Bowel sounds present. Extremities: Patient does have bilateral pitting edema. VARNISHER APPRENTICE: Alert, awake. Answering questions fairly well. The patient still has drainage tube coming from the abdominal abscess. LABORATORY DATA: Blood work done this morning, results are pending. ASSESSMENT: Patient's problems include: 1. Intra-abdominal abscess. 2. Pneumonia. Chest x-ray done yesterday did show some improvement. 3. The patient does have bilateral leg swelling. We did not give him Lovenox because of thrombocytopenia. I am going to get venous Doppler. Check today's blood work. Then we will consider deep venous thrombosis prophylaxis. 4. Metastatic and recurrent colon cancer. 5. Chronic obstructive pulmonary disease. PLAN: Overall plan and prognosis discussed with the son. He is aware. If clinical condition permits, I am planning to transfer him to floor today. cc: Oli Martin MD
[2016-06-13 07:00] LABS: BASO% 0.1 % (0.0-0.8); HEMATOCRIT 30.1 % (42.0-52.0); HEMOGLOBIN 9.9 g/dL (14.0-18.0); IMM GRAN# 0.11 X1000 (0.0-0.04); IMM GRAN% 0.6 % (0.0-0.5); LYMPH# 0.23 X1000 (1.2-3.4); LYMPH% 1.3 % (20.5-51.1); MANUAL DIFF NEEDED? YES; MCH 32.5 PG (27-31); MCHC 32.9 g/dL (33-37); MCV 98.7 FL (81-99); MONO# 1.28 X1000 (0.11-0.59); MONO% 7.2 % (1.7-9.3); NEUT% 90.8 % (42.2-75.2); PLT 56 X1000 (130-400); RBC 3.05 XMIL (4.7-6.1)
[2016-06-13 07:17] LABS: AGAP 9; BUN 33 mg/dL (8-22); CALCIUM 7.6 mg/dL (8.8-10.2); CHLORIDE 96 mmol/L (98-107); COSMO 266; POTASSIUM 3.9 mmol/L (3.5-5.1); SODIUM 127 mmol/L (136-145); TCO2 22 mmol/L (25-35)
[2016-06-13] MEDS: SOLU-MEDROL IV SCH ×3 (07:41→23:38)
--- NOTE | 2016-06-13 07:49 | Diag Imaging Result Document ---
PROCEDURE NAME: CHEST-PORTABLE - 06/13/2016 SINGLE FRONTAL RADIOGRAPH OF THE CHEST: COMPARISON: 06/12/2016. FINDINGS: Right chest port is in stable position. Bilateral infiltrates at the mid and upper lung zones are essentially stable. No new consolidations are identified. Cardiac silhouette is stable. IMPRESSION: Stable chest.
[2016-06-13 08:26] LABS: BANDS 30 % (0-1); HYPOCHROM 1+; LYMPHS 2 % (21-51)
[2016-06-13] MEDS ORDERED: HEPARIN 25,000 UNITS/D5W 25,000 UNIT/250 ML IV.SOLN IV SCH ×2 (08:45→16:51)
[2016-06-13] MEDS: RITALIN PO SCH ×2 (09:16→20:13)
[2016-06-13] MEDS: GRANIX SUBQ SCH (09:24)
[2016-06-13] MEDS: NS IV SCH (11:01)
[2016-06-13] MEDS: GENTAMICIN IV SCH (11:01)
[2016-06-13] MEDS ORDERED: HEPARIN IV ONE (16:43)
[2016-06-13] MEDS ORDERED: NS 250 ML ONE (20:17)
[2016-06-13] MEDS ORDERED: HEPARIN ONE (23:32)
[2016-06-14] MEDS: DILAUDID IV PRN ×4 (02:06→20:51)
[2016-06-14] MEDS: DUONEB (A & A) INH SCH ×4 (02:50→19:20)
[2016-06-14] MEDS: VANCOMYCIN 1,400 MG in NS 250 ML IV SCH (03:33)
[2016-06-14] MEDS: ZOFRAN IV PRN (06:04)
[2016-06-14] MEDS: LEVAQUIN 750 MG/D5W 150 ML IV SCH (06:07)
--- NOTE | 2016-06-14 06:11 | Extremity Venous Study ---
PROCEDURE NAME: Venous U/S Bilateral Legs - 06/13/2016 REQUESTING PHYSICIAN: Dr. Martin. FIRMWARE ARCHITECT: Lucio. INDICATIONS: 1. Edema of bilateral legs. 2. Respiratory distress. 3. History of cancer reported by the technical support technician. PROCEDURES: Bilateral lower extremity venous duplex and color flow imaging. EQUIPMENT: [employer] E9 Ultrasound System with a 9 LD transducer. FINDINGS: Imaging of the bilateral lower extremity venous systems was obtained in both sagittal and transverse planes. Doppler was used to evaluate veins for spontaneity, phasicity, respiratory excursion, and digital augmentation. RESULTS: Acute DVT noted in the right soleal vein and posterior tibial vein at the mid calf. There was also acute DVT noted in the left common femoral, deep femoral, and superficial femoral vein with some flow in these areas at the common femoral and superficial femoral. INTERPRETATION: Acute deep venous thrombosis bilaterally with the right side being present in the soleal and posterior tibial vein at the level of the mid calf. On the left side, there appears to be acute deep venous thrombosis in the left common femoral, superficial femoral, deep femoral veins, although this is not completely occluding. cc: MD Oli Garcia MD
[2016-06-14 06:24] LABS: BASO% 0.3 % (0.0-0.8); HEMATOCRIT 29.1 % (42.0-52.0); HEMOGLOBIN 9.5 g/dL (14.0-18.0); IMM GRAN# 1.05 X1000 (0.0-0.04); IMM GRAN% 3.3 % (0.0-0.5); MANUAL DIFF NEEDED? YES; MCH 32.4 PG (27-31); MCHC 32.6 g/dL (33-37); MCV 99.3 FL (81-99); MONO# 0.83 X1000 (0.11-0.59); MONO% 2.6 % (1.7-9.3); NEUT% 92.8 % (42.2-75.2); PLT 58 X1000 (130-400); RBC 2.93 XMIL (4.7-6.1)
[2016-06-14 06:41] LABS: BANDS 18 % (0-1); LYMPHS 4 % (21-51); MONO 2 % (1-9)
[2016-06-14 06:45] LABS: AGAP 12; ALBUMIN 1.5 g/dL (3.5-5.0); ALKALINE PHOSPHATASE 137 U/L (32-122); BUN 40 mg/dL (8-22); CALCIUM 7.4 mg/dL (8.8-10.2); CHLORIDE 104 mmol/L (98-107); COSMO 284; GOT 18 U/L (10-34); GPT 18 U/L (10-44); POTASSIUM 4.7 mmol/L (3.5-5.1); SODIUM 135 mmol/L (136-145); TCO2 19 mmol/L (25-35); TOTAL PROTEIN 4.1 g/dL (6.3-8.3)
--- NOTE | 2016-06-14 06:46 | PROGRESS NOTE ---
DATE: 06/14/2016 SUBJECTIVE: Mr. Encinas is doing fair. The patient is getting short of breath easily. He denied any high-grade fever or chills. He does have mild cough. We did venous Doppler yesterday which did reveal bilateral acute DVT. On the left side, it was involving the left common femoral, superficial femoral, deep femoral vein, and right side in the soleal posterior tibial vein up to the level of mid calf. Patient was started on heparin drip. The patient is on protocol. Chest x- ray done yesterday revealed stable chest. He does have bilateral infiltrate. OBJECTIVE: Vital Signs: Vital signs noted. Lungs: Bibasilar crepitation. Heart: S1 and S2 heard. Abdomen: Soft, globular. Bowel sounds present. SALON SUPERVISOR: Alert and awake. At times, confused. Able to move all 4 limbs. LABORATORY DATA: Lab data done today, WBC count 31.44, hemoglobin 9.5, hematocrit 29.1 and platelet count 58,000. Electrolyte results are pending. ASSESSMENT AND PLAN: The patient's problem includes acute respiratory failure, bronchopneumonia, DVT, possibility of pulmonary embolism cannot be ruled out. The patient is already on heparin. We will watch for bleeding. Recurrent and metastatic colon cancer. Thrombocytopenia. Overall prognosis is poor. The son is aware of the prognosis. I am going to discuss prognosis and plan with the son again today who is present. cc: Oli Martin MD
[2016-06-14] MEDS: VANCOMYCIN 1,200 MG in NS 250 ML IV SCH (07:45)
[2016-06-14] MEDS: SOLU-MEDROL IV SCH ×2 (07:45→15:38)
[2016-06-14 07:53] LABS: INR 1.43; PROTIME 15.4 Seconds (9.2-11.7)
[2016-06-14] MEDS ORDERED: NS 250 ML ONE (08:17)
[2016-06-14] MEDS: HEPARIN 25,000 UNITS/D5W 25,000 UNIT/250 ML IV.SOLN IV SCH (08:41)
[2016-06-14] MEDS: RITALIN PO SCH ×2 (09:57→20:17)
[2016-06-14] MEDS: CLINIMIX E 4.25%-5% SOLUTION 1,000 ML IV SCH ×2 (10:04→12:46)
[2016-06-14] MEDS: GRANIX SUBQ SCH (10:27)
[2016-06-14] MEDS: GENTAMICIN IV SCH (11:17)
[2016-06-14] MEDS: NS IV SCH (11:17)
[2016-06-14] MEDS ORDERED: LASIX IV ONE (12:33)
[2016-06-14] MEDS ORDERED: DILAUDID ONE (12:44)
[2016-06-14] MEDS: MERREM 1 GM in NS 50 ML IV SCH (20:16)
--- NOTE | 2016-06-14 22:53 | CONSULTATION ---
DATE OF CONSULTATION: 06/14/2016 CONCLUSION: I was asked to seer the patient because of his extreme leukocytosis. I think that there are many causes for this. First of all, he is on steroids, which certainly could contribute to the leukocytosis. Also, the patient has a blood culture positive for Staphylococcus epidermidis, and if the 2nd blood culture, which is also positive grows the same organism, then I think he has a true staphylococcal bacteremia, which most likely originates from his Port-A-Cath. Also, it is noted that the patient had an intra-abdominal abscess following the colon resection. Drain is in the abscess, and this also could contribute to the patient's leukocytosis. Patient has a history of penicillin allergy, as manifested by a rash. As best I could determine from the patient, this happened many years ago. Since the rash happened many years ago, it is more likely that the patient is not allergic to penicillin but to one of the purities in earlier formulations of penicillin. The patient also has Doppler bilateral deep venous thrombosis, which also could contribute to his leukocytosis. RECOMMENDATIONS: I have discontinued vancomycin, and I have discontinued gentamicin and Levaquin, and have started the patient on meropenem, and I have requested that the nurse watch the patient during the first dose of meropenem. DISCUSSION: The patient was unable provide a history. No family member was present. The patient was admitted to the hospital with profound weakness, dehydration and hypotension. He also had a marked pancytopenia with a white blood cell count of only 1,190, and a hemoglobin of 7.7. PAST MEDICAL HISTORY: Positive for myocardial infarction, hypertension, metastatic colon cancer, and COPD. PAST SURGICAL HISTORY: Positive for colon resection and draining of an intra-abdominal abscess. SOCIAL HISTORY: The patient has a history of cigarette smoking, but he has stopped. He had does not drink alcoholic beverages or use drugs. ALLERGIES: The patient has an allergy to adhesive tape and penicillin. HOME MEDICATIONS: Include the following include the following: Hydrocodone, atropine, Zofran, Ritalin and doxycycline. LAB WORK: Shows a CBC with a white count of 31,440, hemoglobin 9.5, and platelet count 58,000. Creatinine 0.6. GFR is greater than 60. The liver function studies are normal except for the alkaline phosphatase at 137. I have Doppler study showing bilateral deep venous thrombosis, and chest x-ray shows bilateral infiltrates. PHYSICAL EXAMINATION: Vital Signs: Temperature is 96.9, pulse 114, respirations 20, blood pressure 103/69. Patient is 5 feet 6 inches tall, weighs 155 pounds. Generally: This is an ill- appearing, elderly male. He is in no acute distress. He is lethargic, and frequently fell asleep during the exam. Head, eyes, ears, nose, and throat: It appeared that he could hear my spoken words. He did track with his eyes. The oral cavity had no white patches. Neck: No meningismus. Thorax: There was slight increased AP diameter of the chest. Lungs: Clear to auscultation. Cardiovascular: Regular heart rate. Abdomen: Soft. It was not tender. There is a drain in the right side of the abdomen. Chest: The patient has a Port-A-Cath on the right side. The site is not erythematous or swollen. Extremities: Patient has a PICC in the right arm. There is some swelling in the arm at the PICC site. There is no erythema. Neurologic: The patient is lethargic. He did not follow requests to move his extremities. He tried to talk a couple of times, but I could not understand what he was saying. cc: MD Oli Pavon MD
--- NOTE | 2016-06-14 22:58 | CONSULTATION ---
DATE OF CONSULTATION: 06/14/2016 ADDENDUM: If the patient's 2nd blood culture shows the same organism as the first blood culture, I think the patient has a true Staphylococcus bacteremia arising from a Port-A-Cath. Since the Staph is a coagulase-negative Staph, and not Staphylococcus aureus. I think it is worth a try to treat the bacteremia, and not remove the patient's Port-A-Cath. This type of Staph is one of the few organisms that sometimes can be treated with just antibiotics, and not having to remove the Port-A-Cath. Also, the patient's condition is very poor, and to take out the Port-A-Cath he would have to have of a surgical procedure to remove it, and if he needed another one there would have to be another surgical procedure, which I think it would be difficult for the patient to survive. In the ED, patient also on his x-ray has bilateral infiltrates. Some of this could be due to pneumonia, which certainly could contribute to the patient's leukocytosis also. cc: MD Oli Pavon MD
[2016-06-15] MEDS: SOLU-MEDROL IV SCH ×2 (00:18→07:34)
[2016-06-15] MEDS: VANCOMYCIN 1,200 MG in NS 250 ML IV SCH (02:14)
[2016-06-15] MEDS: CLINIMIX E 4.25%-5% SOLUTION 1,000 ML IV SCH ×2 (02:14→12:40)
[2016-06-15] MEDS: DUONEB (A & A) INH SCH ×2 (02:55→09:45)
[2016-06-15] MEDS: HEPARIN 25,000 UNITS/D5W 25,000 UNIT/250 ML IV.SOLN IV SCH (03:22)
[2016-06-15] MEDS: MERREM 1 GM in NS 50 ML IV SCH ×2 (04:46→11:16)
[2016-06-15 05:57] LABS: AGAP 10; ALBUMIN 1.6 g/dL (3.5-5.0); ALKALINE PHOSPHATASE 154 U/L (32-122); BUN 54 mg/dL (8-22); CALCIUM 7.2 mg/dL (8.8-10.2); CHLORIDE 101 mmol/L (98-107); COSMO 289; GOT 18 U/L (10-34); GPT 21 U/L (10-44); POTASSIUM 4.9 mmol/L (3.5-5.1); SODIUM 135 mmol/L (136-145); TCO2 24 mmol/L (25-35); TOTAL BILIRUBIN 0.53 mg/dL (0.20-1.00); TOTAL PROTEIN 4.2 g/dL (6.3-8.3)
[2016-06-15] MEDS: DILAUDID IV PRN ×7 (06:03→22:12)
[2016-06-15] MEDS ORDERED: HEPARIN 25,000 UNITS/D5W 25,000 UNIT/250 ML IV.SOLN IV SCH ×2 (07:00→15:10)
--- NOTE | 2016-06-15 07:47 | PROGRESS NOTE ---
DATE: 06/15/2016 SUBJECTIVE: Mr. Encinas is not doing well. The patient is short of breath, still requiring high concentration of oxygen. Mild cough. Pain requiring IV pain medications. The patient is on broad-spectrum IV antibiotics. ID consult requested yesterday because of leukocytosis. No nausea or vomiting. The patient is on parenteral nutrition. IV steroid history part was limited. OBJECTIVE: Vital Signs: Vital signs reviewed. Lungs: Bibasilar crepitations. Heart: S1 and S2 heard. Abdomen: Soft, globular. Bowel sounds present. Patient does have swelling of both the legs. INTERVENTION MANAGER: Alert, awake. Answering questions fair. Uncooperative for detailed exam. LABORATORY DATA: Today, BUN 54, creatinine 0.8, calcium 7.2, potassium 4.9 and CBC result pending. The patient had leukocytosis. CONSIDERATION: 1. Sepsis. ID recommendations noted. 2. Bilateral DVT. Possibility of pulmonary embolism cannot be ruled out. 3. Pneumonia. 4. Intra-abdominal abscess. 5. Recurrent and/or metastatic colon cancer. 6. Respiratory failure. ASSESSMENT AND PLAN: Overall prognosis is poor. I talked to the patient's family yesterday about hospice, is thinking. I am going to transfer patient to step-down unit and continue rest of the treatment. Family is aware of the prognosis. cc: Oli Martin MD
[2016-06-15] MEDS: RITALIN PO SCH (09:15)
[2016-06-15] MEDS: GRANIX SUBQ SCH (09:15)
[2016-06-15 11:38] VITALS: BP 119/59
[2016-06-16] MEDS: DILAUDID IV PRN ×10 (00:19→21:14)
[2016-06-16] MEDS: DUONEB (A & A) INH SCH ×4 (00:55→15:35)
[2016-06-16] MEDS: HEPARIN 25,000 UNITS/D5W 25,000 UNIT/250 ML IV.SOLN IV SCH (10:14)
--- NOTE | 2016-06-16 12:30 | PROGRESS NOTE ---
DATE: 06/16/2016 SUBJECTIVE: The patient under comfort care measures for palliative care. He is stable, appears to be in no discomfort at all. OBJECTIVE: No BPs are being checked currently. CV: RRR. Lungs: Fairly clear. Might be minimal crackle on the right. The patient is in no discomfort. ASSESSMENT: 1. Metastatic colon cancer. 2. Colonic abscess. 3. Sepsis. 4. Pancytopenia. 5. Bilateral deep vein thromboses with probable pulmonary thromboembolism. PLAN: At this time continue comfort measures and we will follow. cc: MD Oli Mckenna MD
[2016-06-17] MEDS: DUONEB (A & A) INH SCH ×3 (02:35→22:00)
[2016-06-17] MEDS: HEPARIN 25,000 UNITS/D5W 25,000 UNIT/250 ML IV.SOLN IV SCH ×2 (02:39→14:00)
[2016-06-17] MEDS: DILAUDID IV PRN ×7 (02:47→22:45)
--- NOTE | 2016-06-17 10:11 | PROGRESS NOTE ---
DATE: 06/17/2016 SUBJECTIVE: Patient continues under comfort care measures. He is alert. Probably 20 family members in the room with him. He is enjoying conversing with them and appears very comfortable. He does state he has some side pain that is responding to IV pain medications. OBJECTIVE: Vital Signs: No blood pressures are being kept. CV: RRR. Lungs: Distant breath sounds, especially at the lung bases but otherwise clear. Extremities: Prominent edema in his arms and 2+ edema in his legs. Neurologic: He moves all extremities and he is conversant. Answers questions appropriately. Appears in no distress. ASSESSMENT: 1. Metastatic colon cancer. 2. Colonic abscess. 3. Sepsis. 4. Pancytopenia. 5. Bilateral lower extremity deep venous thromboses with probable pulmonary thromboembolus. PLAN: Continue the heparin and comfort measures at family request. We have him on adequate pain medication. As long as he is conversant with family and not feeling significant pain, we will continue with current course. cc: MD Oli Mckenna MD
[2016-06-17] MEDS ORDERED: HEPARIN 25,000 UNITS/D5W 25,000 UNIT/250 ML IV.SOLN IV SCH (10:36)
[2016-06-17] MEDS: ATIVAN IV PRN ×3 (13:53→23:34)
[2016-06-18] MEDS: DILAUDID IV PRN ×10 (02:52→23:14)
[2016-06-18] MEDS ORDERED: HEPARIN IV PRN (03:57)
[2016-06-18] MEDS: HEPARIN 25,000 UNITS/D5W 25,000 UNIT/250 ML IV.SOLN IV SCH ×3 (04:38→22:18)
[2016-06-18] MEDS: DUONEB (A & A) INH SCH ×2 (05:30→22:00)
--- NOTE | 2016-06-18 07:41 | PROGRESS NOTE ---
DATE: 06/18/2016 SUBJECTIVE: Mr. Encinas is not doing well. The patient is restless, not communicating. At times, difficulty breathing. No high-grade fever or chills. Family requested to keep him more comfortable. I am going to increase his Ativan. No nausea or vomiting. No diarrhea. According to son, patient's clinical condition deteriorating since yesterday. PHYSICAL EXAMINATION: Vital Signs: His vital signs noted. Neck: Supple. No JVD. Lungs: Decreased air entry at both the bases. CVS: S1 and S2 heard. Abdomen: Soft, globular. Bowel sounds present. 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 Uncooperative for detailed exam. CONSIDERATION: Patient's problems include: 1. Respiratory failure. 2. Sepsis. 3. Deep venous thrombosis. 4. Possible pulmonary embolism. 5. Metastatic colon cancer. 6. Restlessness. PLAN: Overall prognosis is poor. Family requested comfort care. I am going to increase Ativan. I will discuss with the family about stopping heparin drip down the road. cc: Oli Martin MD
[2016-06-18] MEDS: ATIVAN IV PRN ×7 (08:42→21:29)
[2016-06-18] MEDS ORDERED: HEPARIN 25,000 UNITS/D5W 25,000 UNIT/250 ML IV.SOLN IV SCH (16:30)
[2016-06-19] MEDS: ATIVAN IV PRN ×5 (00:35→08:38)
[2016-06-19] MEDS: DILAUDID IV PRN ×7 (01:52→08:03)
[2016-06-19] MEDS: DUONEB (A & A) INH SCH ×2 (05:36→11:14)
--- NOTE | 2016-06-19 06:58 | PROGRESS NOTE ---
DATE: 06/19/2016 SUBJECTIVE: Mr. Encinas is not doing well. His respiration is labored. No unusual bleeding. Oral intake is poor. The patient is on a heparin drip which I am going to stop it today. No nausea or vomiting. PHYSICAL EXAMINATION: Vital Signs: Vital signs reviewed. Respiratory: Decreased air entry at both the bases. CVS: S1 and S2 heard. Abdomen: Soft, globular. Bowel sounds present. LEAD ARCHITECT: The patient is sedated. Uncooperative for detailed exam. CONSIDERATION: 1. Respiratory failure. 2. Deep venous thrombosis. 3. Metastatic colon cancer. PLAN: The patient is on comfort care. Overall prognosis is poor. Family is aware of the prognosis. cc: Oli Martin MD
[2016-06-19] MEDS ORDERED: ATROPINE 1% OPHTH SOLN SL PRN (08:27)
[2016-06-19] MEDS ORDERED: LR 1,000 ML IV SCH (08:58)
[2016-06-19] MEDS ORDERED: NARCAN IV PRN (08:58)
[2016-06-19] MEDS ORDERED: DILAUDID PCA VIAL IV PRN (08:58)
--- NOTE | 2016-06-20 07:40 | DISCHARGE SUMMARY ---
ADMISSION DATE: 06/08/2016 DISCHARGE DATE: 06/19/2016 FINAL DISCHARGE DIAGNOSES: 1. Acute respiratory failure. 2. Sepsis. 3. Bronchopneumonia. 4. Pancytopenia. 5. Metastatic colon cancer. 6. Deep vein thrombosis. 7. Possibility of pulmonary embolism cannot be ruled out. 8. Clinical dehydration. 9. Intra-abdominal abscess. HISTORY OF PRESENT ILLNESS: Mr. Encinas is a 75-year-old white gentleman admitted with weakness, fever, and chills. The patient had a near syncopal episode at home. The patient was getting dehydrated at home. He received some hydration in his oncologist's office. Not getting better. The patient had an abdominal ultrasound done which did reveal an intra-abdominal abscess which was recurrent. The patient was brought to the emergency room. The patient was hypotensive. Found to have pancytopenia. Evaluated and admitted to ICU. The patient was treated with IV antibiotics, supportive care, oxygen. Oncology consult obtained with Dr. Laureano. His clinical condition gradually improved some but then deteriorated. The patient had bilateral leg swelling. The patient was thrombocytopenic we could not give him any heparin. I did venous Doppler which did reveal bilateral DVT. The patient was started on heparin drip. Both blood cultures were positive for Staphylococcus epidermidis. Infectious disease consult obtained with Dr. Hatch. Impression was true sepsis. He changed the antibiotics appropriately. The patient was requiring 100% oxygen via non-rebreather mask. The patient was not getting any better. I had multiple times discussion with the patient's family and patient. According to son patient did not want to live this life. Patient was DNR 1. We moved him to the telemetry bed. Family decided to have comfort measures only. Dr. Laureano stopped all of the antibiotics and steroid. We continued heparin and started palliative care, comfort measures. The patient remained comfortable. No significant bleeding. Clinical condition continued to deteriorate. Patient on June 19. Family was present. LAB DATA: Revealed his admission WBC count 1.19, hemoglobin 7.7, platelet count was 62,000 which dropped down to 31. WBC count dropped down to 1.01. Initial PT/INR was 1.43. PTT was 44.7. Blood gas, pH 7.34, pCO2 35, PO2 48. His electrolytes, last done on June 15, sodium 135, potassium 4.9, BUN 54, creatinine 0.8, total protein 4.2. Albumin was 1.6. Venous Doppler did reveal bilateral DVT. Chest x-ray revealed bronchopneumonia. cc: Oli Martin MD
== END 2016-06-19 09:50 | disposition expired ==
LOC: EDBD → ED 03:48 → 4N 06:46 → ICU 18:01 → 3N 06-15 15:32 → UNDODISIN 06-15 17:23
PROVIDERS: ADMIT Internal Medicine; ATTEND Internal Medicine